=== PATIENT | male | born 1955 | race Caucasian/White ===

== ENCOUNTER 2017-08-30 07:27 | Emergency (ER) | payer OTHER ==
[~2017-08-30] VITALS: Ht 167.6 cm; Wt 70.3 kg
--- NOTE | 2017-08-30 07:40 | NUR ---
Note undone in EDM - 08/30/17 at 0941 by LAURIE AAOX3, C/O PAIN AND SWELLING TO R L E X 3 DAYS, DENIES ANY INJURY. CMS WNL. RR IS EVEN AND UNLABORED WITH NAD NOTED. SKIN IS WARM AND DRY. AWAITING MD FOR EVAL.
--- NOTE | 2017-08-30 07:40 | NUR ---
AAOX3, C/O PAIN AND SWELLING TO R L E X 3 DAYS, DENIES ANY INJURY. RR IS EVEN AND UNLABORED WITH NAD NOTED. SKIN IS WARM AND DRY. AWAITING MD FOR EVAL.
--- NOTE | 2017-08-30 08:22 | NUR ---
[employer] AT [employer].
[2017-08-30 09:27] LABS: BASOPHILS # (AUTO) 0.1 /CMM (0.0-0.2); BASOPHILS % (AUTO) 0.9 % (0.0-2.0); EOSINOPHILS % (AUTO) 2.3 % (0.0-6.0); HEMATOCRIT 45 % (39-51); HEMOGLOBIN 15.1 g/dL (13.5-17.5); LYMPHOCYTES # (AUTO) 1.3 /CMM (0.8-4.8); LYMPHOCYTES % (AUTO) 17.7 % (20.0-44.0); MEAN CORPUSCULAR HGB CONC 33 g/dl (31.0-36.0); MEAN CORPUSCULAR VOLUME 88 fL (80-96); MONOCYTES # (AUTO) 0.7 /CMM (0.1-1.30); MONOCYTES % (AUTO) 8.6 % (2.0-12.0); NEUTROPHILS # (AUTO) 5.3 /CMM (1.8-8.9); NEUTROPHILS % (AUTO) 70.5 % (43.0-81.0); PLATELET COUNT (AUTO) 241 /CMM (150-450); RDW COEFFICIENT OF VARIATION 14.6 (11.5-15.0); RED BLOOD CELL COUNT(AUTO) 5.18 MIL/uL (4.5-6.0); WHITE BLOOD COUNT (AUTO) 7.6 K/uL (4.3-11.0)
[2017-08-30] MEDS ORDERED: ONDANSETRON HCL/PF 4 MG/2 ML VIAL IVP ONE (09:30)
[2017-08-30] MEDS ORDERED: MORPHINE SULFATE INJ 2 MG/ML DISP.SYRIN IV ONE (09:30)
[2017-08-30] MEDS ORDERED: MORPHINE SULFATE INJ 4 MG/ML DISP.SYRIN ONE (09:32)
[2017-08-30] MEDS ORDERED: ONDANSETRON HCL/PF 4 MG/2 ML VIAL ONE (09:32)
[2017-08-30 09:35] LABS: POTASSIUM 3.9 mmol/L (3.5-5.1)
[2017-08-30 09:40] LABS: ALBUMIN 4.1 g/dL (3.4-5.0); BILIRUBIN,TOTAL 0.4 mg/dL (0.2-1.0); INR 0.97 (0.85-1.15); TOTAL PROTEIN, SERUM 7.6 g/dL (6.4-8.2)
--- NOTE | 2017-08-30 09:41 | NUR ---
DR GOLD JOHNSON FOR DR REYES FOR CONSULT
[2017-08-30] MEDS ORDERED: CARV25TA2 PO (10:06)
[2017-08-30] MEDS ORDERED: CLON0.1T PO (10:06)
[2017-08-30] MEDS ORDERED: LISI40TA4 PO (10:06)
--- NOTE | 2017-08-30 10:06 | NUR ---
CALL BACK FROM DR MALCOLM FOR DR REYES
--- NOTE | 2017-08-30 11:41 | NUR ---
IV removed. Catheter intact and site benign. Pressure and 4x4 applied to site. No bleeding noted.Patient discharged to home in stable condition. Written and verbal after care instructions given. Patient verbalizes understanding of instruction.
[2017-08-30 11:43] VITALS: BP 159/99
== END 2017-08-30 11:45 | disposition home or self-care (01) ==
LOC: ER 07:29
DX: I73.9 Peripheral vascular disease, unspecified (principal); M79.661 Pain in right lower leg; I10 Essential (primary) hypertension; F17.210 Nicotine dependence, cigarettes, uncomplicated; Z72.0 Tobacco use; Z88.6 Allergy status to analgesic agent; Z98.2 Presence of cerebrospinal fluid drainage device
CPT/HCPCS: 36415; 71045; 80053; 84484; 85025; 85730; 93005; 93926; 93971; 96374; 96375; 99285; 99406; A4606; J2270; J2405; Z7610

== ENCOUNTER 2021-12-09 07:23 | Emergency (ER) | payer OTHER ==
[~2021-12-09] VITALS: Ht 172.7 cm; Wt 63.5 kg
[~2021-12-09 07:23] MED LIST: CARV25TA2 PO; CLON0.1T PO; LISI40TA13 PO
--- NOTE | 2021-12-09 07:25 | NUR ---
TO ER BED 1, BIB [facility] C/O GENERALIZED WEAKNESS AFTER WAKING UP, HYPERTENSIVE PER EMS, C/O OF HEADACHE, DENIES ANY CHEST PAIN, AAOX3, BREATHING EVEN AND NON LABORED, CONNECTED TO MONITOR, AWAITING MD ORDERS
--- NOTE | 2021-12-09 07:38 | NUR ---
DR VANG AT BEDSIDE
[2021-12-09] MEDS ORDERED: hydrALAZINE HCL IV 20 MG VIAL IV ONE ×2 (08:00→09:30)
[2021-12-09] MEDS ORDERED: MORPHINE SULFATE INJ 2 MG/ML DISP.SYRIN IV ONE (08:00)
[2021-12-09 08:12] LABS: BASOPHILS # (AUTO) 0.1 K/uL (0.0-0.2); BASOPHILS % (AUTO) 1.7 % (0.0-2.0); EOSINOPHILS % (AUTO) 2.6 % (0.0-6.0); HEMATOCRIT 39 % (39-51); HEMOGLOBIN 13.3 g/dL (13.5-17.5); LYMPHOCYTES # (AUTO) 1.2 K/uL (0.8-4.8); MEAN CORPUSCULAR HGB CONC 34 g/dl (31.0-36.0); MEAN CORPUSCULAR VOLUME 89 fL (80-96); MONOCYTES # (AUTO) 0.6 K/uL (0.1-1.30); MONOCYTES % (AUTO) 8.6 % (2.0-12.0); NEUTROPHILS # (AUTO) 4.5 K/uL (1.8-8.9); NEUTROPHILS % (AUTO) 69.1 % (43.0-81.0); PLATELET COUNT (AUTO) 240 K/uL (150-450); RED BLOOD CELL COUNT(AUTO) 4.42 MIL/uL (4.5-6.0); WHITE BLOOD COUNT (AUTO) 6.5 K/uL (4.3-11.0)
[2021-12-09] MEDS ORDERED: MORPHINE SULFATE INJ 2 MG/ML DISP.SYRIN ONE (08:23)
[2021-12-09] MEDS ORDERED: hydrALAZINE HCL IV 20 MG VIAL ONE ×2 (08:23→09:27)
--- NOTE | 2021-12-09 08:43 | NUR ---
PT TAKEN TO CT VIA ODALIS
[2021-12-09 08:46] LABS: ALANINE AMINOTRANSFERASE 37 U/L (12-78); ALBUMIN 3.8 g/dL (3.4-5.0); ALKALINE PHOSPHATASE 104 U/L (46-116); ASPARTATE AMINOTRANSFERASE 28 U/L (15-37); BILIRUBIN,DIRECT 0.1 mg/dL (0.0-0.2); BILIRUBIN,TOTAL 0.4 mg/dL (0.2-1.0); CALCIUM, SERUM 8.6 mg/dL (8.5-10.1); CARBON DIOXIDE 27 mmol/L (21-32); CHLORIDE 96 mmol/L (98-107); CREATININE 1.2 mg/dL (0.6-1.3); GLUCOSE 98 mg/dL (74-106); POTASSIUM 3.2 mmol/L (3.5-5.1); SODIUM SERUM 132 mmol/L (136-145); TOTAL PROTEIN, SERUM 6.9 g/dL (6.4-8.2); UREA NITROGEN, BLOOD 15 mg/dL (7-18)
[2021-12-09] MEDS ORDERED: LISI40TA13 PO (11:49)
[2021-12-09] MEDS ORDERED: CLON0.2T PO (11:49)
[2021-12-09] MEDS ORDERED: HYDR-4075 PO (11:49)
[2021-12-09] MEDS ORDERED: LISINOPRIL (20MG) 20 MG TABLET PO ONE (12:00)
[2021-12-09] MEDS ORDERED: LISINOPRIL (20MG) 20 MG TABLET ONE (12:01)
[2021-12-09 13:09] VITALS: BP 162/100
== END 2021-12-09 13:10 | disposition home or self-care (01) ==
LOC: ER 07:25
DX: I16.0 Hypertensive urgency (principal); R53.1 Weakness; F17.210 Nicotine dependence, cigarettes, uncomplicated; Z98.890 Other specified postprocedural states; Z88.6 Allergy status to analgesic agent; Z79.899 Other long term (current) drug therapy
CPT/HCPCS: 99285; 96374; 70450; 71046; 96375; 93005; 74021; 70360; 96376; 85025; 80048; 80076; 83735; 36415; 84484; 85730; J0360 ×2; J2270

== ENCOUNTER 2023-06-28 08:35 | Inpatient (IN) | payer OTHER, MEDICARE ==
[~2023-06-28] VITALS: Ht 172.7 cm; Wt 72.7 kg
[~2023-06-28 08:35] MED LIST changes: +CLON0.2T PO; +HYDR-4075 PO
[2023-06-28] MEDS ORDERED: ONDANSETRON HCL/PF 4 MG/2 ML VIAL ONE (08:55)
[2023-06-28] MEDS ORDERED: MORPHINE SULFATE INJ 4 MG/ML DISP.SYRIN ONE (08:55)
[2023-06-28] MEDS: MORPHINE SULFATE INJ 2 MG/ML DISP.SYRIN IV ONE (09:00)
[2023-06-28] MEDS: ONDANSETRON HCL/PF - ER 4 MG/2 ML VIAL IV ONE (09:00)
[2023-06-28 09:09] LABS: BASOPHILS # (AUTO) 0.1 K/uL (0.0-0.2); BASOPHILS % (AUTO) 0.8 % (0.0-2.0); EOSINOPHILS # (AUTO) 0.2 K/uL (0.0-0.7); EOSINOPHILS % (AUTO) 1.9 % (0.0-6.0); HEMATOCRIT 40 % (39-51); HEMOGLOBIN 13.2 g/dL (13.5-17.5); LYMPHOCYTES # (AUTO) 1.3 K/uL (0.8-4.8); LYMPHOCYTES % (AUTO) 15.1 % (20.0-44.0); MEAN CORPUSCULAR HEMOGLOBIN 30 PG (26.0-33.0); MEAN CORPUSCULAR HGB CONC 34 g/dl (31.0-36.0); MEAN CORPUSCULAR VOLUME 88 fL (80-96); MONOCYTES # (AUTO) 0.7 K/uL (0.1-1.30); MONOCYTES % (AUTO) 8.4 % (2.0-12.0); NEUTROPHILS # (AUTO) 6.2 K/uL (1.8-8.9); NEUTROPHILS % (AUTO) 73.8 % (43.0-81.0); PLATELET COUNT (AUTO) 205 K/uL (150-450); RED BLOOD CELL COUNT(AUTO) 4.48 MIL/uL (4.5-6.0); RED CELL DISTRIBUTION WIDTH 15.8 % (11.5-15.0); WHITE BLOOD COUNT (AUTO) 8.4 K/uL (4.3-11.0)
[2023-06-28 09:16] LABS: CALCIUM, SERUM 9.1 mg/dL (8.5-10.1); CARBON DIOXIDE 24 mmol/L (21-32); CHLORIDE 99 mmol/L (98-107); CREATININE 1.2 mg/dL (0.6-1.3); GLUCOSE 94 mg/dL (74-106); POTASSIUM 4.2 mmol/L (3.5-5.1); SODIUM SERUM 132 mmol/L (136-145); UREA NITROGEN, BLOOD 16 mg/dL (7-18)
[2023-06-28 09:29] LABS: ALANINE AMINOTRANSFERASE 27 U/L (12-78); ALBUMIN 3.4 g/dL (3.4-5.0); ALKALINE PHOSPHATASE 133 U/L (46-116); ASPARTATE AMINOTRANSFERASE 20 U/L (15-37); BILIRUBIN,DIRECT 0.1 mg/dL (0.0-0.2); BILIRUBIN,TOTAL 0.4 mg/dL (0.2-1.0); NT-PRO BNP 248 pg/mL (0-125); TOTAL PROTEIN, SERUM 6.8 g/dL (6.4-8.2)
[2023-06-28] MEDS ORDERED: LABETALOL HCL IV 100MG VIAL ONE (11:04)
[2023-06-28] MEDS: LABETALOL 20 MG/4 ML VIAL IV ONE ×2 (11:08→11:47)
[2023-06-28] MEDS: hydrALAZINE HCL IV 20 MG VIAL IV ONE (11:30)
[2023-06-28] MEDS ORDERED: CLON0.2T PO (11:36)
[2023-06-28] MEDS ORDERED: HYDR-4076 PO (11:36)
[2023-06-28] MEDS ORDERED: hydrALAZINE HCL IV 20 MG VIAL ONE (11:37)
[2023-06-28 11:58] VITALS: O2SAT 97
[2023-06-28] MEDS ORDERED: NITROGLYCERIN 0.4 MG/TAB BOTTLE SL PRN (12:00)
[2023-06-28] MEDS ORDERED: Z GUARD REMEDY 4 OZ OINT TP PRN (12:00)
[2023-06-28] MEDS ORDERED: MAG HYDROX/AL HYDROX/SIMETH 30 ML UDC PO PRN (12:00)
[2023-06-28] MEDS ORDERED: ONDANSETRON HCL/PF 4 MG/2 ML VIAL IVP PRN (12:00)
[2023-06-28] MEDS ORDERED: MAGNESIUM HYDROXIDE 30 ML UDC PO PRN (12:00)
[2023-06-28] MEDS ORDERED: MORPHINE SULFATE INJ 2 MG/ML DISP.SYRIN IV PRN (12:00)
[2023-06-28] MEDS ORDERED: IV NS 0.9% 250 ML IV ONE (13:25)
[2023-06-28] MEDS ORDERED: NITROGLYCERIN 0.4 MG/TAB BOTTLE ONE (13:25)
[2023-06-28] MEDS ORDERED: IOHEXOL-350 100 ML VIAL IV ONE (13:25)
[2023-06-28] MEDS ORDERED: CT SWABBABLE VALVE TRANS SET 1 EA INFUS.SET MC ONE (13:25)
[2023-06-28] MEDS: METOPROLOL TARTRATE INJ 5 MG/5 ML AMPUL IVP PRN (13:34)
[2023-06-28] MEDS: NITROGLYCERIN 0.4 MG/TAB BOTTLE SL ONE (13:35)
[2023-06-28 14:00] VITALS: BP 157/100; TEMP 97.3; O2SAT 95
[2023-06-28] MEDS: CARVEDILOL 12.5 MG TABLET PO SCH (14:40)
[2023-06-28] MEDS: LISINOPRIL (20MG) 20 MG TABLET PO SCH (14:41)
[2023-06-28] MEDS: METOPROLOL TARTRATE 50 MG TABLET PO SCH (14:41)
[2023-06-28] MEDS: hydrALAZINE HCL 25 MG TABLET PO SCH (14:43)
[2023-06-28 16:05] VITALS: BP 128/75; TEMP 97.2; O2SAT 95
[2023-06-28] MEDS: CLONIDINE HCL 0.1 MG TABLET PO SCH (17:34)
[2023-06-28 20:00] VITALS: BP 146/93; TEMP 97.7; O2SAT 94
[2023-06-29] VITALS: BP 172/99; TEMP 97.7; O2SAT 95
[2023-06-29 04:00] VITALS: BP 180/100; TEMP 97.7; O2SAT 95
[2023-06-29] MEDS: ACETAMINOPHEN 325 MG TABLET PO PRN (04:32)
[2023-06-29 06:21] LABS: BASOPHILS # (AUTO) 0.1 K/uL (0.0-0.2); EOSINOPHILS # (AUTO) 0.2 K/uL (0.0-0.7); EOSINOPHILS % (AUTO) 2.3 % (0.0-6.0); HEMATOCRIT 41 % (39-51); HEMOGLOBIN 13.6 g/dL (13.5-17.5); LYMPHOCYTES # (AUTO) 1.1 K/uL (0.8-4.8); MEAN CORPUSCULAR HEMOGLOBIN 30 PG (26.0-33.0); MEAN CORPUSCULAR HGB CONC 34 g/dl (31.0-36.0); MEAN CORPUSCULAR VOLUME 89 fL (80-96); MONOCYTES # (AUTO) 0.6 K/uL (0.1-1.30); MONOCYTES % (AUTO) 9.3 % (2.0-12.0); NEUTROPHILS # (AUTO) 4.8 K/uL (1.8-8.9); NEUTROPHILS % (AUTO) 71.4 % (43.0-81.0); PLATELET COUNT (AUTO) 200 K/uL (150-450); RED BLOOD CELL COUNT(AUTO) 4.55 MIL/uL (4.5-6.0); RED CELL DISTRIBUTION WIDTH 15.6 % (11.5-15.0); WHITE BLOOD COUNT (AUTO) 6.8 K/uL (4.3-11.0)
[2023-06-29 06:51] LABS: CALCIUM, SERUM 9.3 mg/dL (8.5-10.1); CREATININE 1.1 mg/dL (0.6-1.3); MAGNESIUM 2.2 mg/dL (1.8-2.4); PHOSPHORUS 3.4 mg/dL (2.5-4.9); POTASSIUM 4.4 mmol/L (3.5-5.1)
[2023-06-29 07:30] VITALS: BP 197/104; TEMP 97.5; O2SAT 96
[2023-06-29 08:27] VITALS: BP 174/101
[2023-06-29] MEDS: ISOSORBIDE DINITRATE (20MG) 20 MG TABLET PO SCH (08:27)
[2023-06-29] MEDS: ASPIRIN 325 MG TABLET PO SCH (08:27)
[2023-06-29] MEDS: NIFEdipine XL (30MG) 30 MG TAB PO SCH (08:27)
[2023-06-29] MEDS ORDERED: hydrALAZINE HCL 25 MG TABLET PO SCH (13:00)
[2023-06-29 13:45] LABS: URINE SODIUM, RANDOM 112 mmol/l (40-220)
[2023-06-30 16:19] LABS: OSMOLALITY,URINE 594 mOS/kg (340-1090)
== END 2023-06-29 13:00 | disposition home or self-care (01) | DRG 198 ==
LOC: ER 08:47 → TELE 13:45
PROVIDERS: ADMIT Internal Medicine; ATTEND Internal Medicine
DX: I25.119 Atherosclerotic heart disease of native coronary artery with unspecified angina pectoris (principal); E87.1 Hypo-osmolality and hyponatremia; I10 Essential (primary) hypertension; I16.0 Hypertensive urgency; Z86.73 Personal history of transient ischemic attack (TIA), and cerebral infarction without residual deficits; I25.2 Old myocardial infarction; F17.210 Nicotine dependence, cigarettes, uncomplicated; Z98.2 Presence of cerebrospinal fluid drainage device
CPT/HCPCS: 36415; 71045-TC; 75574; 80048-TC; 80076-TC; 82962-TC; 83735-TC; 83880; 83935-TC; 84100-TC; 84300-TC; 84484-TC; 85025-TC; 93307-TC; G0378; J0360; J2270; J2405; J3490; J7050; Q9967